=== PATIENT | male | born 1980 | race Two or more races ===

== ENCOUNTER 2022-11-02 10:25 | Emergency (ER) | payer BC ==
[2022-11-02 10:44] VITALS: RESP 18; TEMP 97.9
--- NOTE | 2022-11-02 11:00 | ED ---
Lower Extremity Injury HPI - General Chief Complaint: Extremity Injury, Lower Stated Complaint: lt knee injury Time Seen by Provider: 11/02/22 10:45 Source: patient, family, RN notes reviewed Mode of arrival: wheelchair Limitations: no limitations - History of Present Illness Initial Comments: This a 42-year-old male presents emergency Department chief complaint of left knee pain. Patient states that he was playing with his kids a small basketball hoop and which they fell into his left knee on the medial aspect he states he felt an initial pop, and states pain to his left leg and swelling throughout the night. Patient states he continues to have spasms of his quad, swelling and firmness in his quadrant region. He complains of medial knee pain he states he is unable to bear weight on that side secondary to pain. - Related Data Previous Rx's Medication Instructions Recorded Ibuprofen [Motrin] 800 mg PO Q6HR #30 tab 11/02/22 Allergies Allergy/AdvReac Type Severity Reaction Status Date / Time No Known Allergies Allergy Verified 11/02/22 10:44 Review of Systems ROS Statement: Those systems with pertinent positive or pertinent negative responses have been documented in the HPI. ROS Other: All systems not noted in ROS Statement are negative. Past Medical History Past Medical History: No Reported History History of Any Multi-Drug Resistant Organisms: None Reported Past Surgical History: No Surgical Hx Reported Smoking Status: Never smoker Past Alcohol Use History: None Reported Past Drug Use History: None Reported General Exam Limitations: no limitations General appearance: alert, in no apparent distress Head exam: Present: atraumatic, normocephalic, normal inspection Eye exam: Present: normal appearance, PERRL, EOMI. Absent: scleral icterus, conjunctival injection, periorbital swelling Respiratory exam: Present: normal lung sounds bilaterally. Absent: respiratory distress, wheezes, rales, rhonchi, stridor Cardiovascular Exam: Present: regular rate, normal rhythm, normal heart sounds. Absent: systolic murmur, diastolic murmur, rubs, gallop, clicks Extremities exam: Present: other (Left knee there is moderate swelling, limited exam secondary to limited range of motion, pain with valgus and varus there is swelling of the distal thigh region. Pulses are equal there is no calf tenderness) Neurological exam: Present: reflexes normal. Absent: motor sensory deficit Skin exam: Present: warm, dry, intact, normal color. Absent: rash Course Vital Signs 11/02/22 10:41 Temperature 97.9 F Pulse Rate 79 Respiratory 18 Rate Blood Pressure 146/79 O2 Sat by Pulse 99 Oximetry Medical Decision Making - Medical Decision Making 42-year-old male presented for left knee pain patient x-ray shows moderate effusion patient will follow-up with orthopedic surgeries to remain nonweightbearing Was pt. sent in by a medical professional or institution? @ -no Did you speak to anyone other than the patient for history? @ no Did you review nursing and triage notes? @ -agree and reviewed Were old charts reviewed? @ -no Differential Diagnosis? @ -Knee strain, knee sprain, ACL tear, MCL tear, meniscus tear, this this is not meant to be all-inclusive EKG interpreted by me (3pts min.)? @ -no X-rays interpreted by me (1pt min.)? @ -Left knee x-ray interpreted by me there is joint effusion, no bony abnormality CT interpreted by me (1pt min.)? @ -no U/S interpreted by me (1pt. min.)? @ -no What testing was considered but not performed? (CT, X-rays, U/S, labs)? Why? @ MRI though unable to obtain will follow up outpatient at orthopedics What meds were considered but not given? Why? @ -Pain meds, patient declined Did you discuss the management of the patient with other professionals? @ -no Did you reconcile home meds? @ -no Was smoking cessation discussed for >3mins.? @ -no Was critical care preformed (if so, how long)? @ -no Were there social determinants of health that impacted care today? How? (Homelessness, low income, unemployed, alcoholism, drug addiction, transportation, low edu. Level, literacy, decrease access to med. care, assisted, rehab)? @ -no Was there de-escalation of care discussed even if they declined? (Discuss DNR or withdrawal of care, Hospice)? @ -no What co-morbidities impacted this encounter? (DM, HTN, Smoking, COPD, CAD, Cancer, CVA, Hep., AIDS, mental health diagnosis, sleep apnea, morbid obesity)? @ -none Was patient admitted / discharged? @ -discharged Undiagnosed new problem with uncertain prognosis? @ -no Drug Therapy requiring intensive monitoring for toxicity (Heparin, Nitro, Insulin, Cardizem)? @ -no Were any procedures done? @ -no Diagnosis/symptom? @ -Left knee sprain Acute, or Chronic, or Acute on Chronic? @ -acute Uncomplicated (without systemic symptoms) or Complicated (systemic symptoms)? @ -uncomplicated Side effects of treatment? @ -no Exacerbation, Progression, or Severe Exacerbation] @ -no Poses a threat to life or bodily function? @ -no Diagnosis/symptom? @ -Left knee joint effusion Acute, or Chronic, or Acute on Chronic? @ -acute Uncomplicated (without systemic symptoms) or Complicated (systemic symptoms)? @ -uncomplicated Side effects of treatment? @ -none Exacerbation, Progression, or Severe Exacerbation] @ -no Poses a threat to life or bodily function? @ -no Disposition Clinical Impression: Internal derangement of left knee, Left knee sprain, Knee effusion, left Disposition: HOME SELF-CARE Condition: Stable Instructions (If sedation given, give patient instructions): Knee Sprain (ED) Additional Instructions: Please return to the Emergency Department if symptoms worsen or any other concerns. Prescriptions: Ibuprofen [Motrin] 800 mg PO Q6HR #30 tab Is patient prescribed a controlled substance at d/c from ED?: No Referrals: Dalton Porras DO [Primary Care Provider] - 1-2 days Rex Holbrook MD [Family Provider] - 1-2 days Time of Disposition: 12:12
--- NOTE | 2022-11-02 11:23 | XR ---
EXAMINATION TYPE: XR knee complete LT DATE OF EXAM: 11/02/2022 11:15 AM INDICATION: Patient age:Male; 42 years old; Reason for study: pain; COMPARISON: None. TECHNIQUE: The Left knee(s) was examined in Frontal, lateral and oblique projections. FINDINGS: Soft tissue swelling in the prepatellar and medial and lateral distal legs. No evidence o f acute fracture. There is a small joint effusion. IMPRESSION: 1. No acute osseous pathology. 2. Soft tissue swelling around the knee with small joint effusion. Further evaluation of the soft tis sues with MRI is recommended.
[2022-11-02] MEDS ORDERED: IBUPROFEN 800 MG TAB PO STA (12:13)
[2022-11-02 12:28] VITALS: BP 112/78; PULSE 72
== END 2022-11-02 12:27 | disposition home or self-care (01) ==
LOC: EDBD → EC 10:25
DX: S83.92XA Sprain of unspecified site of left knee, initial encounter (principal); M23.92 Unspecified internal derangement of left knee; W18.30XA Fall on same level, unspecified, initial encounter; Y93.67 Activity, basketball
CPT/HCPCS: 99283